=== PATIENT | female | born 1970 | race Two or more races ===

== ENCOUNTER 2017-10-24 12:18 | Emergency (ER) | payer BC ==
[2017-10-24] MEDS ORDERED: IBUPROFEN 800 MG TABLET. PO (12:45)
[2017-10-24] MEDS: ACETAMINOPHEN 325 MG TABLET. PO (12:51)
== END 2017-10-24 15:16 | disposition home or self-care (01) ==
LOC: ER 12:18
DX: S93.401A Sprain of unspecified ligament of right ankle, initial encounter (principal); S43.402A Unspecified sprain of left shoulder joint, initial encounter; Z88.6 Allergy status to analgesic agent; W10.9XXA Fall (on) (from) unspecified stairs and steps, initial encounter; Y93.01 Activity, walking, marching and hiking; Y92.69 Other specified industrial and construction area as the place of occurrence of the external cause; Y99.8 Other external cause status
CPT/HCPCS: 73030; 73610; 73630; 99284